=== PATIENT | female | born 1985 | race African-American/Black ===

== ENCOUNTER 2018-06-01 10:31 | Outpatient (CLI) | payer OTHER | END 2018-06-01 19:38 | disposition home or self-care (01) | LOC: MAMMO 10:31 | DX: N63.31 Unspecified lump in axillary tail of the right breast (principal); N63.41 Unspecified lump in right breast, subareolar ==

== ENCOUNTER 2019-01-31 14:52 | Outpatient (CLI) | payer OTHER | END 2019-01-31 19:26 | disposition home or self-care (01) | LOC: US 14:52 | DX: R92.8 Other abnormal and inconclusive findings on diagnostic imaging of breast (principal) ==

== ENCOUNTER 2019-09-28 12:26 | Outpatient (CLI) | payer OTHER | END 2019-09-28 20:20 | disposition home or self-care (01) | LOC: US 12:26 | DX: R92.8 Other abnormal and inconclusive findings on diagnostic imaging of breast (principal) ==

== ENCOUNTER 2020-06-03 13:01 | Outpatient (CLI) | payer OTHER | END 2020-06-03 19:11 | disposition home or self-care (01) | LOC: US 13:01 | DX: R92.8 Other abnormal and inconclusive findings on diagnostic imaging of breast (principal) ==

== ENCOUNTER 2020-12-20 10:02 | Outpatient (CLI) | payer OTHER | END 2020-12-20 19:51 | disposition home or self-care (01) | LOC: US 10:02 | PROVIDERS: ATTEND Internal Medicine | DX: R92.8 Other abnormal and inconclusive findings on diagnostic imaging of breast (principal) ==